=== PATIENT | female | born 1950 | race Two or more races ===

== ENCOUNTER → 2024-11-24 | Outpatient (CLI) | payer OTHER, MEDICAID, SELFPAY ==
--- NOTE | 2024-11-24 14:30 | XR_ITS ---
Examination: Abdomen sonogram, Limited Date and time of exam: November 24, 2024 1350 hours INDICATIONS: Elevated liver function tests on laboratory examination this week Technique: Real-time min scale transabdominal sonographic images of the upper abdomen obtained. Findings: Normal gallbladder Normal common bile duct 0.5 cm Pancreatic head 2.0 cm Liver 16.4 cm irregular contour fatty infiltration Normal hepatopedal portal venous flow Patent IVC IMPRESSION: Mild hepatomegaly, primary hepatocellular disease, fatty infiltration, no focal liver lesions
== END | disposition home or self-care (01) ==
PROVIDERS: PCP Physician Assistant; Referring Provider Physician Assistant; Visit Provider Physician Assistant
DX: K76.0 Fatty (change of) liver, not elsewhere classified (principal)
CPT/HCPCS: 76705